=== PATIENT | male | born 1980 | race Caucasian/White ===

== ENCOUNTER 2021-11-10 10:47 | Emergency (ER) | payer OTHER ==
[~2021-11-10] VITALS: Ht 180.3 cm; Wt 118.0 kg
[2021-11-10] MEDS ORDERED: KETOROLAC 30MG/ML VIAL IM ONE (11:15)
[2021-11-10] MEDS ORDERED: CYCL5TAB MT (11:41)
[2021-11-10] MEDS ORDERED: NAPR-1176 MT (11:41)
[2021-11-10 12:09] VITALS: BP 127/86
== END 2021-11-10 12:10 | disposition home or self-care (01) ==
LOC: ER 11:02
DX: M54.50 Low back pain, unspecified (principal)
CPT/HCPCS: 96372; 99283; J1885